=== PATIENT | male | born 1985 | race African-American/Black ===

== ENCOUNTER 2018-05-25 08:25 | Emergency (ER) | payer MEDICAID, OTHER ==
[~2018-05-25] VITALS: Ht 180.3 cm; Wt 70.0 kg
[2018-05-25] MEDS ORDERED: IBUPROFEN 800MG TABLET PO ONE (12:00)
[2018-05-25 13:11] VITALS: BP 128/89
== END 2018-05-25 13:17 | disposition home or self-care (01) ==
LOC: ER 08:25
DX: S29.012A Strain of muscle and tendon of back wall of thorax, initial encounter (principal); S16.1XXA Strain of muscle, fascia and tendon at neck level, initial encounter; M79.671 Pain in right foot; G51.0 Bell's palsy; V49.88XA Car occupant (driver) (passenger) injured in other specified transport accidents, initial encounter; Y93.89 Activity, other specified; Y92.89 Other specified places as the place of occurrence of the external cause; Y99.8 Other external cause status
CPT/HCPCS: 73630; 99283